=== PATIENT | male | born 1980 | race Caucasian/White ===

== ENCOUNTER 2019-01-20 17:17 | Inpatient (IN) | payer OTHER ==
[2019-01-20 21:17] VITALS: BMI 19.1
--- NOTE | 2019-01-20 22:17 | HP ---
COWS - Scale Resting Pulse: 0= [place] 80 or Below Sweatin= Chills/Flushing Restless Observation: 1= Difficult to Sit Still Pupil Size: 1= Pupils >than Normal Bone or Joint Aches: 1= Mild Discomfort Runny Nose/ Eye Tearin= Runny Nose/Eyes GI Upset > 30mins: 0= None Tremor Observation: 2= Slight Tremor Visible Yawning Observation: 2= >3x During Session Anxiety or Irritability: 2=Irritable/Anxious Goose Flesh Skin: 3=Piloerection COWS Score: 15 CIWA Score - Admission Criteria [facility]ASAS Guidelines: Admission for Medically Managed Detox: Requires at least one of the followin. CIWA greater than 12 2. Seizures within the past 24 hours 3. Delirium tremens within the past 24 hours 4. Hallucinations within the past 24 hours 5. Acute intervention needed for co occurring medical disorder 6. Acute intervention needed for co occurring psychiatric disorder 7. Severe withdrawal that cannot be handled at a lower level of care (continued vomiting, continued diarrhea, abnormal vital signs) requiring intravenous medication and/or fluids 8. Admission ROS [facility] Chief Complaint: C/O WITHDRAWAL SX'S Allergies/Adverse Reactions: Allergies Allergy/AdvReac Type Severity Reaction Status Date / Time No Known Allergies Allergy Verified 01/20/19 19:52 History of Present Illness: 38 Y.O. MALE WITH OPIOID DEPENDENCE HERE FOR DETOX. CLIENT WAS REFERRED BY [facility] AFTER HE WAS INFORMED THEY DID NOT TAKE HIS INSURANCE. CLIENT REPORTS DAILY USE OF HEROIN SINCE THE AGE OF 25 WITH PERIOD OF CLEAN TIME. LAST USE EARLY THIS MORNING. HERE NOW WITH C/O WITHDRAWAL SX'S. + COWS, IVDU. + HX OF DRUG OVERDOSE. DOESN'T RECALL LAST EPISODE. REPORTS MOST RECENT CLEAN TIME 1 YEAR RELAPSING 2 MONTHS.HOMELESS, UNEMPLOYED, DENIES LEGALS Exam Limitations: No Limitations - Ebola screening Have you traveled outside of the country in the last 21 days: No (N) Have you had contact with anyone from an Ebola affected area: No Do you have a fever: No - Review of Systems Constitutional: Chills, Loss of Appetite, Malaise, Night Sweats, Changes in sleep EENT: reports: Tearing, Nose Congestion (WITH RUNNY NOSE) Respiratory: reports: No Symptoms reported Cardiac: reports: No Symptoms Reported GI: reports: Diarrhea, Abdominal cramping : reports: No Symptoms Reported Musculoskeletal: reports: Back Pain Integumentary: reports: Other (PILORECTION) Neuro: reports: No Symptoms reported Endocrine: reports: No Symptoms Reported Hematology: reports: No Symptoms Reported Psychiatric: reports: Orientated x3, Agitated (IRRITABLE), Anxious, Depressed ( DENIES SI/HI) Other Systems: Reviewed and Negative Patient History - Patient Medical History Hx Anemia: No Hx Asthma: No Hx Chronic Obstructive Pulmonary Disease (COPD): No Hx Cancer: No Hx Cardiac Disorders: No Hx Congestive Heart Failure: No Hx Hypertension: No Hx Hypercholesterolemia: No Hx Pacemaker: No HX Cerebrovascular Accident: No Hx Seizures: No Hx Dementia: No Hx Diabetes: No Hx Gastrointestinal Disorders: No Hx Liver Disease: No Hx Genitourinary Disorders: No Hx Sexually Transmitted Disorders: No Hx Renal Disease (ESRD): No Hx Thyroid Disease: No Hx Human Immunodeficiency Virus (HIV): No Hx Hepatitis C: No Hx Depression: No Hx Suicide Attempt: No Hx Bipolar Disorder: No Hx Schizophrenia: No Other Medical History: DENIES - Patient Surgical History Past Surgical History: No - PPD History Previous Implant?: Yes Documented Results: Negative w/o proof Implanted On Prior [facility] Admission?: No PPD to be Administered?: Yes - Smoking Cessation Smoking history: Current every day smoker Have you smoked in the past 12 months: Yes Cigars Per Day: 0 Hx Chewing Tobacco Use: No Initiated information on smoking cessation: Yes 'Breaking Loose' booklet given: 01/20/19 - Substance & Tx. History Hx Alcohol Use: Yes Hx Substance Use: Yes Substance Use Type: Heroin Hx Substance Use Treatment: Yes ([facility]) - Substances abused Heroin Substance route: Injection Frequency: Daily Amount used: 2 BUNDLES Age of first use: 25 Date of last use: 01/20/19 Admission Physical Exam BHS - Vital Signs Vital Signs: Vital Signs - 24 hr 01/20/19 21:14 Temperature 98.1 F Pulse Rate 56 L Respiratory 18 Rate Blood Pressure 113/69 - Physical General Appearance: Yes: Moderate Distress, Tremorous, Irritable, Anxious, Other (yawning) HEENTM: Yes: EOMI, Normocephalic, Normal Voice, NOAH, Pharynx Normal Respiratory: Yes: Chest Non-Tender, Lungs Clear, Normal Breath Sounds, No Respiratory Distress, No Accessory Muscle Use Neck: Yes: No masses,lesions,Nodules, Supple, Trachea in good position Breast: Yes: Breast Exam Deferred Cardiology: Yes: Regular Rhythm, Regular Rate, S1, S2 Abdominal: Yes: Non Tender, Soft, Increased Bowel Sounds Genitourinary: Yes: Other (no c/o) Back: Yes: Normal Inspection Musculoskeletal: Yes: full range of Motion, Gait Steady Extremities: Yes: Normal Capillary Refill, Normal Range of Motion, Non-Tender, Tremors Neurological: Yes: Fully Oriented, Alert, Motor Strength 5/5, Depressed Affect Integumentary: Yes: Cold, Other (pilorection) Lymphatic: Yes: Within Normal Limits - Diagnostic (1) Opioid dependence with withdrawal Status: Acute (2) Cocaine dependence, uncomplicated Status: Acute (3) IVDU (intravenous drug user) Status: Acute (4) Homeless Status: Suspected (5) Substance induced mood disorder Status: Suspected Cleared for Admission S - Detox or Rehab [facility] Level of Care: Medically Managed Detox Regimen/Protocol: Methadone Claeared for Rehab Admission: No Breathalyzer - Breathalyzer Breathalyzer: 0 Urine Drug Screen - Test Device Lot number: [id number] Expiration date: 09/20/20 - Control Is test valid?: Yes - Results Drug screen NEGATIVE: Yes Urine drug screen results: SARAY-Cocaine, FEN-Fentanyl, MOP-Opiates, OXY-Oxycodone Inpatient Rehab Admission - Rehab Decision to Admit Inpatient rehab admission?: No
[2019-01-20] MEDS ORDERED: MAG HYDROX/AL HYDROX/SIMETH 30 ML UNIT-DOSE CUP PO PRN (22:20)
[2019-01-20] MEDS ORDERED: P-EPHED 60MG/TRIPROLIDI 2.5MG TABLET PO PRN (22:20)
[2019-01-20] MEDS ORDERED: MAGNESIUM HYDROX 2400MG/30ML ORAL SUSPENSION 30 ML CUP PO PRN (22:20)
[2019-01-20] MEDS ORDERED: cloNIDine HCL 0.1 MG TABLET PO PRN (22:20)
[2019-01-20] MEDS ORDERED: guaiFENesin 200 MG/10 ML 10 ML UNIT-DOSE CUPS PO PRN (22:20)
[2019-01-20] MEDS ORDERED: NICOTINE POLACRILEX 4 MG GUM BUC PRN (22:20)
[2019-01-20] MEDS ORDERED: METHADONE HCL 10 MG TABLET (FOR DETOX USE ONLY) PO ONE (22:20)
[2019-01-20] MEDS ORDERED: MAGNESIUM CITRATE 300 ML BOTTLE PO PRN (22:20)
[2019-01-20] MEDS ORDERED: MENTHOL/PHENOL 1 EACH UD MM PRN (22:20)
[2019-01-20] MEDS ORDERED: NALOXONE HCL 0.4 MG/ML VIAL IM PRN (22:20)
[2019-01-20] MEDS ORDERED: ACETAMINOPHEN 325 MG TABLET (FP) PO PRN ×2 (22:20)
[2019-01-20] MEDS ORDERED: ONDANSETRON *ODT* 4 MG TABLET SL PRN (22:20)
[2019-01-20] MEDS ORDERED: IBUPROFEN 400 MG TABLET (FP) PO PRN (22:20)
[2019-01-20] MEDS ORDERED: BISMUTH SUBSALICYLATE 524 MG/30 ML UD PO PRN (22:20)
[2019-01-20] MEDS ORDERED: hydrOXYzine PAMOATE 25 MG CAPSULE (FP) PO PRN (22:20)
[2019-01-20] MEDS: MELATONIN 5 MG TABLETS PO PRN (23:44)
[2019-01-20] MEDS: METHOCARBAMOL 500 MG TABLET PO PRN (23:44)
[2019-01-21] MEDS ORDERED: METHADONE HCL 5 MG TABLET (FOR DETOX USE ONLY) ONE (09:03)
[2019-01-21] MEDS ORDERED: METHADONE HCL 10 MG TABLET (FOR DETOX USE ONLY) ONE (09:03)
[2019-01-21] MEDS ORDERED: METHADONE (DETOX) 20 MG, METHADONE (DETOX) 5 MG PO ONE (10:00)
--- NOTE | 2019-01-21 10:14 | EKG ---
Test Reason : Blood Pressure : / mmHG Vent. Rate : 051 BPM Atrial Rate : 051 BPM P-R Int : 150 ms QRS Dur : 086 ms QT Int : 432 ms P-R-T Axes : 061 078 061 degrees QTc Int : 398 ms SINUS BRADYCARDIA ANTEROSEPTAL INFARCT , AGE UNDETERMINED ABNORMAL ECG NO PREVIOUS ECGS AVAILABLE Confirmed by Michael Yeboah MD ([id number]) on 01/21/2019 10:14:05 AM Referred By: Confirmed By:Michael Yeboah MD
[2019-01-21] MEDS: NICOTINE 21 MG/24 HOURS TOPICAL PATCH TD SCH (10:23)
[2019-01-21] MEDS: PRENATAL VITAMINS W/ FOLIC ACID TABLET (FP) PO SCH (10:23)
--- NOTE | 2019-01-21 10:38 | CONSULT ---
[facility] Psychiatric Consult - Data Date of interview: 01/21/19 Admission source: [facility] Identifying data: Patient is a 38 year old single male, without children, unemployed, homeless, and is not receiving any financial assistance. This is patient's first admissin to detox at [facility]. Patient admitted to for opiate dependence. Substance Abuse History: - Substances abused. Heroin. Substance route: Injection. Frequency: Daily. Amount used: 2 BUNDLES. Age of first use: 25. Date of last use: 01/20/19 Medical History: denies. Psychiatric History: Mr. Casper first and only psychiatric contact was 2 years ago after he seeked psychiatric help due to having difficulties with his girlfriend. He was provided psychotherapy but then discontinued treatment after one month. At present patient reports feeling fine. He denies feeling depressed. Physical/Sexual Abuse/Trauma History: denies. Mental Status Exam - Mental Status Exam Alert and Oriented to: Time, Place, Person Cognitive Function: Good Patient Appearance: Well Groomed Mood: Euthymic Affect: Mood Congruent Patient Behavior: Cooperative Speech Pattern: Appropriate Voice Loudness: Normal Thought Process: Goal Oriented Thought Disorder: Not Present Hallucinations: Denies Suicidal Ideation: Denies Homicidal Ideation: Denies Insight/Judgement: Poor Sleep: Poorly Appetite: Fair Muscle strength/Tone: Normal Gait/Station: Normal Psychiatric Findings - Problem List ([place] 1, 2,3) (1) Cocaine dependence, uncomplicated Current Visit: Yes Status: Acute (2) Opioid dependence with withdrawal Current Visit: Yes Status: Acute (3) Substance induced mood disorder Current Visit: No Status: Suspected - Initial Treatment Plan Initial Treatment Plan: Psychoeducation provided. Detoxification in progress. Observation.
[2019-01-21 12:11] LABS: HEMATOCRIT 37.2 % (35.4-49); HEMOGLOBIN 12.4 GM/dL (11.7-16.9); MCH 31.1 pg (25.7-33.7); MCHC 33.3 g/dl (32.0-35.9); MEAN CELL VOLUME 93.2 fl (80-96); MEAN PLT VOLUME 7.7 fl (7.5-11.1); PLATELET COUNT 327 K/MM3 (134-434); RDW 12.4 % (11.9-15.9); WHITE BLOOD COUNT 6.1 K/mm3 (4.0-10.0)
[2019-01-21 12:59] LABS: ALBUMIN 3.3 g/dl (3.4-5.0); BILIRUBIN,TOTAL 0.8 mg/dL (0.2-1); BLOOD UREA NITROGEN 11.9 mg/dL (7-18); CALCIUM 8.7 mg/dL (8.5-10.1); CREATININE 0.8 mg/dL (0.55-1.3); POTASSIUM 4.5 mmol/L (3.5-5.1); TOT PROT 6.2 g/dl (6.4-8.2)
--- NOTE | 2019-01-21 13:44 | PN ---
BHS COWS - Scale Resting Pulse: 0= [place] 80 or Below Sweatin= No chills or Flushing Restless Observation: 1= Difficult to Sit Still Pupil Size: 1= Pupils >than Normal Bone or Joint Aches: 2= Severe Diffuse Aches Runny Nose/ Eye Tearin= Nasal Congestion GI Upset > 30mins: 1= Stomach Cramp Tremor Observation of Outstretched Hands: 1= Tremor [place], Not Seen Yawning Observation: 1= 1-2x During Session Anxiety or Irritability: 2=Irritable/Anxious Goose Flesh Skin: 0=Smooth Skin COWS Score: 10 S Progress Note (SOAP) Subjective: alert,irritable,anxious,interrupted sleep,pain in the body and back Objective: 01/21/19 13:42 Vital Signs Temperature 98.4 F 01/21/19 13:08 Pulse Rate 50 L 01/21/19 13:08 Respiratory Rate 16 01/21/19 13:08 Blood Pressure 91/58 L 01/21/19 13:08 O2 Sat by Pulse Oximetry (%) Laboratory Last Values WBC 6.1 K/mm3 (4.0-10.0) 01/21/19 08:45 RBC 4.00 M/mm3 (4.00-5.60) 01/21/19 08:45 Hgb 12.4 GM/dL (11.7-16.9) 01/21/19 08:45 Hct 37.2 % (35.4-49) 01/21/19 08:45 MCV 93.2 fl (80-96) 01/21/19 08:45 MCH 31.1 pg (25.7-33.7) 01/21/19 08:45 MCHC 33.3 g/dl (32.0-35.9) 01/21/19 08:45 RDW 12.4 % (11.9-15.9) 01/21/19 08:45 Plt Count 327 K/MM3 (134-434) 01/21/19 08:45 MPV 7.7 fl (7.5-11.1) 01/21/19 08:45 Sodium 138 mmol/L (136-145) 01/21/19 08:45 Potassium 4.5 mmol/L (3.5-5.1) 01/21/19 08:45 Chloride 105 mmol/L (98-107) 01/21/19 08:45 Carbon Dioxide 27 mmol/L (21-32) 01/21/19 08:45 Anion Gap 7 MMOL/L (8-16) L 01/21/19 08:45 BUN 11.9 mg/dL (7-18) 01/21/19 08:45 Creatinine 0.8 mg/dL (0.55-1.3) 01/21/19 08:45 Est GFR (CKD-EPI)AfAm 131.34 01/21/19 08:45 Est GFR (CKD-EPI)NonAf 113.32 01/21/19 08:45 Random Glucose 79 mg/dL (74-106) 01/21/19 08:45 Calcium 8.7 mg/dL (8.5-10.1) 01/21/19 08:45 Total Bilirubin 0.8 mg/dL (0.2-1) 01/21/19 08:45 AST 19 U/L (15-37) 01/21/19 08:45 ALT 14 U/L (13-61) 01/21/19 08:45 Alkaline Phosphatase 89 U/L (45-117) 01/21/19 08:45 Total Protein 6.2 g/dl (6.4-8.2) L 01/21/19 08:45 Albumin 3.3 g/dl (3.4-5.0) L 01/21/19 08:45 01/21/19 13:43 rpr pending Assessment: 01/21/19 13:43 withdrawal symptom Plan: continue detox methadone regimen
[2019-01-21] MEDS: MELATONIN 5 MG TABLETS PO PRN (22:26)
[2019-01-21] MEDS: THIAMINE HCL 100 MG TABLET (FP) PO SCH (22:26)
[2019-01-22] MEDS ORDERED: METHADONE HCL 10 MG TABLET (FOR DETOX USE ONLY) PO ONE (10:00)
[2019-01-22] MEDS: PRENATAL VITAMINS W/ FOLIC ACID TABLET (FP) PO SCH (10:24)
[2019-01-22] MEDS: NICOTINE 21 MG/24 HOURS TOPICAL PATCH TD SCH (10:24)
[2019-01-22] MEDS: METHOCARBAMOL 500 MG TABLET PO PRN ×2 (10:25→22:06)
--- NOTE | 2019-01-22 14:06 | PN ---
BHS COWS - Scale Resting Pulse: 0= [place] 80 or Below Sweatin= No chills or Flushing Restless Observation: 1= Difficult to Sit Still Pupil Size: 1= Pupils >than Normal Bone or Joint Aches: 1= Mild Discomfort Runny Nose/ Eye Tearin= Runny Nose/Eyes GI Upset > 30mins: 1= Stomach Cramp Tremor Observation of Outstretched Hands: 1= Tremor [place], Not Seen Yawning Observation: 1= 1-2x During Session Anxiety or Irritability: 2=Irritable/Anxious Goose Flesh Skin: 0=Smooth Skin COWS Score: 10 S Progress Note (SOAP) Subjective: alert,irritable,anxious,pain in the body and back Objective: 01/22/19 14:05 Vital Signs Temperature 97.2 F L 01/22/19 13:17 Pulse Rate 75 01/22/19 13:17 Respiratory Rate 18 01/22/19 13:17 Blood Pressure 96/63 01/22/19 13:17 O2 Sat by Pulse Oximetry (%) 01/22/19 14:05 Laboratory Last Values WBC 6.1 K/mm3 (4.0-10.0) 01/21/19 08:45 RBC 4.00 M/mm3 (4.00-5.60) 01/21/19 08:45 Hgb 12.4 GM/dL (11.7-16.9) 01/21/19 08:45 Hct 37.2 % (35.4-49) 01/21/19 08:45 MCV 93.2 fl (80-96) 01/21/19 08:45 MCH 31.1 pg (25.7-33.7) 01/21/19 08:45 MCHC 33.3 g/dl (32.0-35.9) 01/21/19 08:45 RDW 12.4 % (11.9-15.9) 01/21/19 08:45 Plt Count 327 K/MM3 (134-434) 01/21/19 08:45 MPV 7.7 fl (7.5-11.1) 01/21/19 08:45 Sodium 138 mmol/L (136-145) 01/21/19 08:45 Potassium 4.5 mmol/L (3.5-5.1) 01/21/19 08:45 Chloride 105 mmol/L (98-107) 01/21/19 08:45 Carbon Dioxide 27 mmol/L (21-32) 01/21/19 08:45 Anion Gap 7 MMOL/L (8-16) L 01/21/19 08:45 BUN 11.9 mg/dL (7-18) 01/21/19 08:45 Creatinine 0.8 mg/dL (0.55-1.3) 01/21/19 08:45 Est GFR (CKD-EPI)AfAm 131.34 01/21/19 08:45 Est GFR (CKD-EPI)NonAf 113.32 01/21/19 08:45 Random Glucose 79 mg/dL (74-106) 01/21/19 08:45 Calcium 8.7 mg/dL (8.5-10.1) 01/21/19 08:45 Total Bilirubin 0.8 mg/dL (0.2-1) 01/21/19 08:45 AST 19 U/L (15-37) 01/21/19 08:45 ALT 14 U/L (13-61) 01/21/19 08:45 Alkaline Phosphatase 89 U/L (45-117) 01/21/19 08:45 Total Protein 6.2 g/dl (6.4-8.2) L 01/21/19 08:45 Albumin 3.3 g/dl (3.4-5.0) L 01/21/19 08:45 RPR Titer Nonreactive (NONREACTIVE) 01/21/19 08:45 Assessment: 01/22/19 14:06 withdrawal symptom Plan: continue detox,methadone regimen
[2019-01-22 16:53] LABS: PH,URINE 8.5 (5.0-8.0); URINE APPEARANCE CLEAR; URINE BILIRUBIN NEGATIVE (NEGATIVE); URINE COLOR YELLOW; URINE GLUCOSE (UA) NEGATIVE (NEGATIVE); URINE KETONE NEGATIVE (NEGATIVE); URINE LEUK ESTERASE NEGATIVE (NEGATIVE); URINE NITRITE NEGATIVE (NEGATIVE); URINE PROTEIN NEGATIVE (NEGATIVE); URINE UROBILINOGEN 0.2 mg/dL (0.2-1.0)
[2019-01-22] MEDS: THIAMINE HCL 100 MG TABLET (FP) PO SCH (22:05)
[2019-01-22] MEDS: MELATONIN 5 MG TABLETS PO PRN (22:06)
[2019-01-23] MEDS ORDERED: METHADONE HCL 5 MG TABLET (FOR DETOX USE ONLY) ONE (08:53)
[2019-01-23] MEDS ORDERED: METHADONE HCL 10 MG TABLET (FOR DETOX USE ONLY) ONE (08:53)
[2019-01-23] MEDS ORDERED: METHADONE (DETOX) 10 MG, METHADONE (DETOX) 5 MG PO ONE (10:00)
[2019-01-23] MEDS: PRENATAL VITAMINS W/ FOLIC ACID TABLET (FP) PO SCH (10:02)
[2019-01-23] MEDS: NICOTINE 21 MG/24 HOURS TOPICAL PATCH TD SCH (10:03)
--- NOTE | 2019-01-23 14:55 | PN ---
BHS COWS - Scale Resting Pulse: 0= [place] 80 or Below Sweatin= Chills/Flushing Restless Observation: 1= Difficult to Sit Still Pupil Size: 0= Normal to Room Light Bone or Joint Aches: 1= Mild Discomfort Runny Nose/ Eye Tearin= Runny Nose/Eyes GI Upset > 30mins: 0= None Tremor Observation of Outstretched Hands: 0= None Yawning Observation: 1= 1-2x During Session Anxiety or Irritability: 2=Irritable/Anxious Goose Flesh Skin: 0=Smooth Skin COWS Score: 8 BHS Progress Note (SOAP) Subjective: Anxious, Sweating, Fatigue, Nasal Congestion. Objective: PATIENT A & O X 3. IN NO ACUTE DISTRESS. 01/23/19 14:56 Vital Signs Temperature 96.9 F L 01/23/19 13:25 Pulse Rate 59 L 01/23/19 13:25 Respiratory Rate 18 01/23/19 13:25 Blood Pressure 89/57 L 01/23/19 13:25 O2 Sat by Pulse Oximetry (%) Laboratory Tests 01/21/19 01/21/19 01/21/19 08:45 08:45 08:45 WBC 6.1 RBC 4.00 Hgb 12.4 Hct 37.2 MCV 93.2 MCH 31.1 MCHC 33.3 RDW 12.4 Plt Count 327 MPV 7.7 Sodium 138 Potassium 4.5 Chloride 105 Carbon Dioxide 27 Anion Gap 7 L BUN 11.9 Creatinine 0.8 Est GFR (CKD-EPI)AfAm 131.34 Est GFR (CKD-EPI)NonAf 113.32 Random Glucose 79 Calcium 8.7 Total Bilirubin 0.8 AST 19 ALT 14 Alkaline Phosphatase 89 Total Protein 6.2 L Albumin 3.3 L Urine Color Urine Appearance Urine pH Ur Specific [place] Urine Protein Urine Glucose (UA) Urine Ketones Urine Blood Urine Nitrite Urine Bilirubin Urine Urobilinogen Ur Leukocyte Esterase RPR Titer Nonreactive 01/22/19 13:30 WBC RBC Hgb Hct MCV MCH MCHC RDW Plt Count MPV Sodium Potassium Chloride Carbon Dioxide Anion Gap BUN Creatinine Est GFR (CKD-EPI)AfAm Est GFR (CKD-EPI)NonAf Random Glucose Calcium Total Bilirubin AST ALT Alkaline Phosphatase Total Protein Albumin Urine Color Yellow Urine Appearance Clear Urine pH 8.5 H Ur Specific [place] 1.010 Urine Protein Negative Urine Glucose (UA) Negative Urine Ketones Negative Urine Blood Negative Urine Nitrite Negative Urine Bilirubin Negative Urine Urobilinogen 0.2 Ur Leukocyte Esterase Negative RPR Titer LABS NOTED. Assessment: 01/23/19 14:56 WITHDRAWAL SYMPTOMS. HYPOTENSION. 01/23/19 14:57 Plan: CONTINUE DETOX. INCREASE DAILY PO WATER INTAKE.
[2019-01-23] MEDS: THIAMINE HCL 100 MG TABLET (FP) PO SCH (22:05)
[2019-01-23] MEDS: METHOCARBAMOL 500 MG TABLET PO PRN (22:06)
[2019-01-23] MEDS: MELATONIN 5 MG TABLETS PO PRN (22:06)
[2019-01-24] MEDS ORDERED: METHADONE HCL 10 MG TABLET (FOR DETOX USE ONLY) PO ONE (10:00)
[2019-01-24] MEDS: PRENATAL VITAMINS W/ FOLIC ACID TABLET (FP) PO SCH (10:17)
[2019-01-24] MEDS: NICOTINE 21 MG/24 HOURS TOPICAL PATCH TD SCH (10:17)
[2019-01-24] MEDS: METHOCARBAMOL 500 MG TABLET PO PRN (22:03)
[2019-01-24] MEDS: MELATONIN 5 MG TABLETS PO PRN (22:03)
[2019-01-24] MEDS: THIAMINE HCL 100 MG TABLET (FP) PO SCH (22:03)
[2019-01-25] MEDS ORDERED: METHADONE HCL 5 MG TABLET (FOR DETOX USE ONLY) PO ONE (06:00)
[2019-01-25 09:09] VITALS: BP 96/68; PULSE 87; TEMP 95.8
--- NOTE | 2019-01-25 18:43 | DS ---
[facility] Detox Discharge Summary Admission Date: 01/20/19 Discharge Date: 01/25/19 - History Present History: Cocaine Dependence, Opioid Dependence Additional Comments: PATIENT GOING [facility] ([place], [place]) FOR AFTERCARE. PATIENT WAS DISCHARGED FORM DETOX UNIT IN STABLE MEDICAL CONDITION. Pertinent Past History: Intravenous Drug User, Hypotension. - Physical Exam Results Vital Signs: Vital Signs Temperature 95.8 F L 01/25/19 09:09 Pulse Rate 87 01/25/19 09:09 Respiratory Rate 18 01/25/19 09:09 Blood Pressure 96/68 01/25/19 09:09 O2 Sat by Pulse Oximetry (%) Pertinent Admission Physical Exam Findings: WITHDRAWAL SYMPTOMS. Laboratory Tests 01/21/19 01/21/19 01/21/19 08:45 08:45 08:45 WBC 6.1 RBC 4.00 Hgb 12.4 Hct 37.2 MCV 93.2 MCH 31.1 MCHC 33.3 RDW 12.4 Plt Count 327 MPV 7.7 Sodium 138 Potassium 4.5 Chloride 105 Carbon Dioxide 27 Anion Gap 7 L BUN 11.9 Creatinine 0.8 Est GFR (CKD-EPI)AfAm 131.34 Est GFR (CKD-EPI)NonAf 113.32 Random Glucose 79 Calcium 8.7 Total Bilirubin 0.8 AST 19 ALT 14 Alkaline Phosphatase 89 Total Protein 6.2 L Albumin 3.3 L Urine Color Urine Appearance Urine pH Ur Specific [place] Urine Protein Urine Glucose (UA) Urine Ketones Urine Blood Urine Nitrite Urine Bilirubin Urine Urobilinogen Ur Leukocyte Esterase RPR Titer Nonreactive 01/22/19 13:30 WBC RBC Hgb Hct MCV MCH MCHC RDW Plt Count MPV Sodium Potassium Chloride Carbon Dioxide Anion Gap BUN Creatinine Est GFR (CKD-EPI)AfAm Est GFR (CKD-EPI)NonAf Random Glucose Calcium Total Bilirubin AST ALT Alkaline Phosphatase Total Protein Albumin Urine Color Yellow Urine Appearance Clear Urine pH 8.5 H Ur Specific [place] 1.010 Urine Protein Negative Urine Glucose (UA) Negative Urine Ketones Negative Urine Blood Negative Urine Nitrite Negative Urine Bilirubin Negative Urine Urobilinogen 0.2 Ur Leukocyte Esterase Negative RPR Titer LABS NOTED. - Treatment Patient has Accepted a Rehab Referral to: PATIENT GOING TO [facility]. - Medication Discharge Medications: Ambulatory Orders NK [No Known Home Medication] 01/20/19 - Diagnosis (1) Cocaine dependence, uncomplicated Status: Acute (2) Hypotension Status: Acute Qualifiers: Hypotension type: unspecified hypotension type Qualified Code(s): I95.9 - Hypotension, unspecified (3) IVDU (intravenous drug user) Status: Acute (4) Opioid dependence with withdrawal Status: Acute (5) Homeless Status: Suspected (6) Substance induced mood disorder Status: Suspected - AMA Did Patient Leave Against Medical Advice: No BHS COWS - Scale Resting Pulse: 1= [place] 81-100 Sweatin= No chills or Flushing Restless Observation: 0= Sits Still Pupil Size: 0= Normal to Room Light Bone or Joint Aches: 0= None Runny Nose/ Eye Tearin= None GI Upset > 30mins: 0= None Tremor Observation of Outstretched Hands: 0= None Yawning Observation: 0= None Anxiety or Irritability: 2=Irritable/Anxious Goose Flesh Skin: 0=Smooth Skin COWS Score: 3
== END 2019-01-25 09:58 | disposition home or self-care (01) | DRG 773 ==
LOC: YASAS 17:17 → Y3N 23:02
PROVIDERS: ADMIT Surgery; ATTEND Surgery
PROC: HZ2ZZZZ Detoxification Services for Substance Abuse Treatment (ICD-10-PCS; principal; 2019-01-20)
DX: F11.23 Opioid dependence with withdrawal (principal); F14.20 Cocaine dependence, uncomplicated; F17.210 Nicotine dependence, cigarettes, uncomplicated; F19.24 Other psychoactive substance dependence with psychoactive substance-induced mood disorder; I95.9 Hypotension, unspecified; Z59.0 Homelessness
CPT/HCPCS: 36415; 80053; 81003; 85027; 86593; 93005; 93010

== ENCOUNTER 2019-02-21 19:50 | Inpatient (IN) | payer OTHER ==
[2019-02-21 20:42] VITALS: BMI 18.2
--- NOTE | 2019-02-21 22:14 | HP ---
COWS - Scale Resting Pulse: 0= [place] 80 or Below Sweatin= Chills/Flushing Restless Observation: 1= Difficult to Sit Still Pupil Size: 0= Normal to Room Light Bone or Joint Aches: 4=Acute Joint/Muscle Pain Runny Nose/ Eye Tearin= Nasal Congestion GI Upset > 30mins: 1= Stomach Cramp Tremor Observation: 0= None Yawning Observation: 1= 1-2x During Session Anxiety or Irritability: 2=Irritable/Anxious Goose Flesh Skin: 3=Piloerection COWS Score: 14 CIWA Score - Admission Criteria OASAS Guidelines: Admission for Medically Managed Detox: Requires at least one of the followin. CIWA greater than 12 2. Seizures within the past 24 hours 3. Delirium tremens within the past 24 hours 4. Hallucinations within the past 24 hours 5. Acute intervention needed for co occurring medical disorder 6. Acute intervention needed for co occurring psychiatric disorder 7. Severe withdrawal that cannot be handled at a lower level of care (continued vomiting, continued diarrhea, abnormal vital signs) requiring intravenous medication and/or fluids 8. Admitting History and Physical - Smoking History Smoking history: Current every day smoker Have you smoked in the past 12 months: Yes Aproximately how many cigarettes per day: 10 - Alcohol/Substance Use Hx Alcohol Use: Yes Admission ROS S - HPI Chief Complaint: C/O WITHDRAWAL SX'S Allergies/Adverse Reactions: Allergies Allergy/AdvReac Type Severity Reaction Status Date / Time No Known Allergies Allergy Verified 02/21/19 20:39 History of Present Illness: NAREN FOR HEROIN DETOX. CLIENT IS SELF REFERRED, KNOWN TO THE PROGRAM, LAST DC 01/25/2019. CLIENT REPORTS RELAPSING SOON AFTER DC. HE REPORTS DAILY USE OF HEROIN, + IVDU, + DRUG OVERDOSE, 7 TIMES LAST EPISODE 2 MONTHS AGO, DENIES BLACK, OUTS, SEIZURES, AVH, SI/HI. LAST USE THIS MORNING. NOW WITH WITHDRAWAL SX'S. LONGEST CLEAN TIME 1.5 YEARS. RELAPSING 12/2018. HOMELESS, UNEMPLOYED, DENIES LEGALS Exam Limitations: No Limitations - Ebola screening Have you traveled outside of the country in the last 21 days: No (N) Have you had contact with anyone from an Ebola affected area: No Do you have a fever: No - Review of Systems Constitutional: Chills, Loss of Appetite, Night Sweats, Changes in sleep EENT: reports: Nose Congestion, Dental Problems (MISSING TEETH) Respiratory: reports: No Symptoms reported Cardiac: reports: No Symptoms Reported GI: reports: Constipated (LAST BM 1 DAY AGO), Poor Appetite, Poor Fluid Intake : reports: No Symptoms Reported Musculoskeletal: reports: Back Pain, Joint Pain Integumentary: reports: No Symptoms Reported Neuro: reports: No Symptoms reported Endocrine: reports: No Symptoms Reported Hematology: reports: No Symptoms Reported Psychiatric: reports: Orientated x3, Anxious, Depressed Other Systems: Reviewed and Negative Patient History - Patient Medical History Hx Anemia: No Hx Asthma: No Hx Chronic Obstructive Pulmonary Disease (COPD): No Hx Cancer: No Hx Cardiac Disorders: No Hx Congestive Heart Failure: No Hx Hypertension: No Hx Hypercholesterolemia: No Hx Pacemaker: No HX Cerebrovascular Accident: No Hx Seizures: No Hx Dementia: No Hx Diabetes: No Hx Gastrointestinal Disorders: No Hx Liver Disease: No Hx Genitourinary Disorders: No Hx Sexually Transmitted Disorders: No Hx Renal Disease (ESRD): No Hx Thyroid Disease: No Hx Human Immunodeficiency Virus (HIV): No Hx Hepatitis C: No Hx Depression: No Hx Suicide Attempt: No Hx Bipolar Disorder: No Hx Schizophrenia: No - Patient Surgical History Past Surgical History: No Hx Neurologic Surgery: No Hx Cataract Extraction: No Hx Cardiac Surgery: No Hx Lung Surgery: No Hx Breast Surgery: No Hx Breast Biopsy: No Hx Abdominal Surgery: No Hx Appendectomy: No Hx Cholecystectomy: No Hx Genitourinary Surgery: No Hx Section: No Hx Orthopedic Surgery: No Anesthesia Reaction: No - PPD History Previous Implant?: Yes Documented Results: Negative w/proof Date: 01/22/19 Results: MM PPD to be Administered?: No - Smoking Cessation Smoking history: Current every day smoker Have you smoked in the past 12 months: Yes Aproximately how many cigarettes per day: 10 Cigars Per Day: 0 Hx Chewing Tobacco Use: No Initiated information on smoking cessation: Yes 'Breaking Loose' booklet given: 02/21/19 - Substance & Tx. History Hx Alcohol Use: Yes Hx Substance Use: Yes Substance Use Type: Heroin Hx Substance Use Treatment: Yes ([facility]) - Substances abused Heroin Substance route: Injection Frequency: Daily Amount used: 2 BUNDLES Age of first use: 25 Date of last use: 02/21/19 Cocaine Substance route: Injection Frequency: 3-6 times per week Amount used: 1 GM Age of first use: 18 Date of last use: 02/18/19 Admission Physical Exam [facility] - Vital Signs Vital Signs: Vital Signs - 24 hr 02/21/19 20:40 Temperature 97.9 F Pulse Rate 73 Respiratory 16 Rate Blood Pressure 106/62 - Physical General Appearance: Yes: Moderate Distress, Cachetic, Tremorous (FELT), Irritable, Anxious HEENTM: Yes: EOMI, Normocephalic, Normal Voice, NOAH, Pharynx Normal, Nasal Congestion Respiratory: Yes: Chest Non-Tender, Lungs Clear, Normal Breath Sounds, No Respiratory Distress, No Accessory Muscle Use Neck: Yes: No masses,lesions,Nodules, Supple, Trachea in good position Breast: Yes: Breast Exam Deferred Cardiology: Yes: Regular Rhythm, Regular Rate, S1, S2 Abdominal: Yes: Normal Bowel Sounds, Non Tender, Soft Genitourinary: Yes: Within Normal Limits Back: Yes: Normal Inspection Musculoskeletal: Yes: full range of Motion, Gait Steady Extremities: Yes: Normal Range of Motion, Non-Tender, Tremors (FELT) Neurological: Yes: Fully Oriented, Alert, Motor Strength 5/5, Depressed Affect ( DENIES SI/HI) Integumentary: Yes: Dry, Warm, Track [place] (NECK), Other (PILORECTION SUPERFICIAL ABRASION WITH SCABBING TO LEFT DICKSON FROM PREVIOUS FALL) Lymphatic: Yes: Within Normal Limits - Diagnostic (1) Cocaine dependence, uncomplicated Current Visit: Yes Status: Acute (2) IVDU (intravenous drug user) Current Visit: Yes Status: Acute (3) Opioid dependence with withdrawal Current Visit: Yes Status: Acute (4) Homeless Current Visit: Yes Status: Suspected (5) Substance induced mood disorder Current Visit: Yes Status: Suspected (6) Acute constipation Current Visit: Yes Status: Acute (7) Track larkin due to intravenous drug abuse Current Visit: Yes Status: Acute Cleared for Admission [facility] - Detox or Rehab [facility] Level of Care: Medically Managed Detox Regimen/Protocol: Methadone Claeared for Rehab Admission: No Breathalyzer - Breathalyzer Breathalyzer: 0 Urine Drug Screen - Test Device Lot number: [id number] Expiration date: 10/20/20 - Control Is test valid?: No - Results Drug screen NEGATIVE: No Urine drug screen results: SARAY-Cocaine, FEN-Fentanyl, MOP-Opiates, OXY-Oxycodone Inpatient Rehab Admission - Rehab Decision to Admit Inpatient rehab admission?: No
[2019-02-21] MEDS ORDERED: MENTHOL/PHENOL 1 EACH UD MM PRN (22:18)
[2019-02-21] MEDS ORDERED: METHOCARBAMOL 500 MG TABLET PO PRN (22:18)
[2019-02-21] MEDS ORDERED: hydrOXYzine PAMOATE 25 MG CAPSULE (FP) PO PRN (22:18)
[2019-02-21] MEDS ORDERED: ONDANSETRON *ODT* 4 MG TABLET SL PRN (22:18)
[2019-02-21] MEDS ORDERED: METHADONE HCL 10 MG TABLET (FOR DETOX USE ONLY) PO ONE (22:18)
[2019-02-21] MEDS ORDERED: P-EPHED 60MG/TRIPROLIDI 2.5MG TABLET PO PRN (22:18)
[2019-02-21] MEDS ORDERED: MAG HYDROX/AL HYDROX/SIMETH 30 ML UNIT-DOSE CUP PO PRN (22:18)
[2019-02-21] MEDS ORDERED: IBUPROFEN 400 MG TABLET (FP) PO PRN (22:18)
[2019-02-21] MEDS ORDERED: guaiFENesin 200 MG/10 ML 10 ML UNIT-DOSE CUPS PO PRN (22:18)
[2019-02-21] MEDS ORDERED: BISMUTH SUBSALICYLATE 524 MG/30 ML UD PO PRN (22:18)
[2019-02-21] MEDS ORDERED: MAGNESIUM CITRATE 300 ML BOTTLE PO PRN (22:18)
[2019-02-21] MEDS ORDERED: NALOXONE HCL 0.4 MG/ML VIAL IM PRN (22:18)
[2019-02-21] MEDS ORDERED: ACETAMINOPHEN 325 MG TABLET (FP) PO PRN ×2 (22:18)
[2019-02-21] MEDS ORDERED: cloNIDine HCL 0.1 MG TABLET PO PRN (22:18)
[2019-02-21] MEDS ORDERED: NICOTINE POLACRILEX 2 MG GUM BUC PRN (22:18)
[2019-02-21] MEDS ORDERED: DICYCLOMINE HCL 10 MG CAPSULE PO PRN (22:18)
[2019-02-21] MEDS ORDERED: MAGNESIUM HYDROX 2400MG/30ML ORAL SUSPENSION 30 ML CUP PO PRN (22:18)
[2019-02-22 09:48] LABS: HEMATOCRIT 37.6 % (35.4-49); HEMOGLOBIN 12.5 GM/dL (11.7-16.9); MCH 31.1 pg (25.7-33.7); MCHC 33.2 g/dl (32.0-35.9); MEAN CELL VOLUME 93.7 fl (80-96); MEAN PLT VOLUME 7.7 fl (7.5-11.1); PLATELET COUNT 310 K/MM3 (134-434); RBC 4.01 M/mm3 (4.00-5.60); RDW 13.2 % (11.9-15.9); WHITE BLOOD COUNT 6.6 K/mm3 (4.0-10.0)
[2019-02-22] MEDS ORDERED: METHADONE HCL 10 MG TABLET (FOR DETOX USE ONLY) PO ONE (10:00)
[2019-02-22 10:18] LABS: ALBUMIN 3.2 g/dl (3.4-5.0); BILIRUBIN,TOTAL 0.8 mg/dL (0.2-1); BLOOD UREA NITROGEN 13.2 mg/dL (7-18); CALCIUM 8.6 mg/dL (8.5-10.1); CREATININE 0.8 mg/dL (0.55-1.3); POTASSIUM 4.1 mmol/L (3.5-5.1); TOT PROT 6.3 g/dl (6.4-8.2)
[2019-02-22] MEDS: PRENATAL VITAMINS W/ FOLIC ACID TABLET (FP) PO SCH (10:54)
[2019-02-22] MEDS: NICOTINE 21 MG/24 HOURS TOPICAL PATCH TD SCH (10:56)
--- NOTE | 2019-02-22 11:31 | PN ---
BHS COWS - Scale Resting Pulse: 0= [place] 80 or Below Sweatin= Chills/Flushing Restless Observation: 1= Difficult to Sit Still Pupil Size: 0= Normal to Room Light Bone or Joint Aches: 2= Severe Diffuse Aches Runny Nose/ Eye Tearin= Runny Nose/Eyes GI Upset > 30mins: 1= Stomach Cramp Tremor Observation of Outstretched Hands: 2= Slight Tremor Visible Yawning Observation: 2= >3x During Session Anxiety or Irritability: 2=Irritable/Anxious Goose Flesh Skin: 0=Smooth Skin COWS Score: 13 BHS Progress Note (SOAP) Subjective: sweats shakes chills interrupted sleep anxiety body aches irritable Objective: 02/22/19 11:30 Vital Signs Temperature 96.4 F L 02/22/19 09:25 Pulse Rate 75 02/22/19 09:25 Respiratory Rate 18 02/22/19 09:25 Blood Pressure 109/59 L 02/22/19 09:25 O2 Sat by Pulse Oximetry (%) Laboratory Tests 02/22/19 02/22/19 07:45 07:45 WBC 6.6 RBC 4.01 Hgb 12.5 Hct 37.6 MCV 93.7 MCH 31.1 MCHC 33.2 RDW 13.2 Plt Count 310 MPV 7.7 Sodium 141 Potassium 4.1 Chloride 106 Carbon Dioxide 28 Anion Gap 6 L BUN 13.2 Creatinine 0.8 Est GFR (CKD-EPI)AfAm 131.34 Est GFR (CKD-EPI)NonAf 113.32 Random Glucose 92 Calcium 8.6 Total Bilirubin 0.8 AST 18 ALT 17 Alkaline Phosphatase 107 Total Protein 6.3 L Albumin 3.2 L labs noted aaox3 ambulating no acute distress Assessment: 02/22/19 11:31 withdrawals Plan: continue detox increase fluids valium 10mg x 3 days only
--- NOTE | 2019-02-22 14:14 | CONSULT ---
[facility] Psychiatric Consult - Data Date of interview: 02/22/19 Admission source: [facility] Identifying data: Readmission to [facility] for this 38 y/o male self- referred for detoxification (BEN issues : heroin, cocaine, nicotine). Interviewed at [address] [place] [address]. Patient is single, no dependents, homeless, unemployed and deprived of financial assistance. Substance Abuse History: Discussed with patient in this session. Details in accordance with contents of current [facility] reprt as follows : Smoking history: Current every day smoker. Have you smoked in the past 12 months: Yes. Aproximately how many cigarettes per day: 10. Cigars Per Day: 0. Hx Chewing Tobacco Use: No. Initiated information on smoking cessation: Yes. 'Breaking Loose' booklet given: 02/21/19. - Substance & Tx. History. Hx Alcohol Use: Yes. Hx Substance Use: Yes. Substance Use Type: Heroin. Hx Substance Use Treatment: Yes ([facility]). - Substances abused. Heroin. Substance route: Injection. Frequency: Daily. Amount used: 2 BUNDLES. Age of first use: 25. Date of last use: 02/21/19. Cocaine. Substance route: Injection. Frequency : 3-6 times per week. Amount used: 1 GM. Age of first use: 18. Date of last use: 02/18/19 Medical History: Patient endorses good general health. Psychiatric History: Patient denies history of psychiatric hopsitalizations, OPD care or suicide attempts. Physical/Sexual Abuse/Trauma History: Patient denies. Additional Comment: Urine drug screen results: SARAY-Cocaine, FEN-Fentanyl, MOP- Opiates, OXY-Oxycodone. Noted. Mental Status Exam - Mental Status Exam Alert and Oriented to: Time, Place, Person Cognitive Function: Good Patient Appearance: Unkempt, Disheveled (thin habitus) Mood: Withdrawn Affect: Mood Congruent, Constricted Patient Behavior: Fatigued, Appropriate, Cooperative Speech Pattern: Clear, Appropriate Voice Loudness: Normal Thought Process: Goal Oriented Thought Disorder: Not Present Hallucinations: Denies Suicidal Ideation: Denies Homicidal Ideation: Denies Insight/Judgement: Poor Sleep: Well Appetite: Poor, Weight loss Gait/Station: Other (not observed; supine for duration of interview) Psychiatric Findings - Problem List ([place] 1, 2,3) (1) Opioid dependence with withdrawal Current Visit: Yes Status: Acute (2) Cocaine dependence, uncomplicated Current Visit: Yes Status: Chronic (3) Nicotine dependence Current Visit: Yes Status: Chronic (4) Substance induced mood disorder Current Visit: Yes Status: Chronic - Initial Treatment Plan Initial Treatment Plan: Psychoeducation. Sleep hygiene. Detoxification. NA meetings. MAT services offered : patient declines. Rehabilitation recommended : patient responded with ambivalence. " I am thinking about it." Observation.
[2019-02-22] MEDS: DOCUSATE SODIUM 100 MG CAPSULE (FP) PO SCH (22:38)
[2019-02-22] MEDS: diazePAM 5 MG TABLET PO PRN (22:38)
[2019-02-22] MEDS: THIAMINE HCL 100 MG TABLET (FP) PO SCH (22:39)
[2019-02-22] MEDS: MELATONIN 5 MG TABLETS PO PRN (22:39)
[2019-02-23] MEDS ORDERED: METHADONE HCL 10 MG TABLET (FOR DETOX USE ONLY) PO ONE (10:00)
[2019-02-23] MEDS: PRENATAL VITAMINS W/ FOLIC ACID TABLET (FP) PO SCH (10:51)
[2019-02-23] MEDS: NICOTINE 21 MG/24 HOURS TOPICAL PATCH TD SCH (10:51)
[2019-02-23] MEDS: diazePAM 5 MG TABLET PO PRN ×2 (10:57→22:30)
--- NOTE | 2019-02-23 16:20 | PN ---
BHS COWS - Scale Resting Pulse: 0= [place] 80 or Below Sweatin= Chills/Flushing Restless Observation: 1= Difficult to Sit Still Pupil Size: 0= Normal to Room Light Bone or Joint Aches: 2= Severe Diffuse Aches Runny Nose/ Eye Tearin= None GI Upset > 30mins: 2= Nausea/Diarrhea Tremor Observation of Outstretched Hands: 2= Slight Tremor Visible Yawning Observation: 1= 1-2x During Session Anxiety or Irritability: 2=Irritable/Anxious Goose Flesh Skin: 0=Smooth Skin COWS Score: 11 BHS Progress Note (SOAP) Subjective: Sweating, chills, tremor, yawning, stomachache, interrupted sleep Objective: 02/23/19 16:20 Last Vital Signs Temp Pulse Resp BP Pulse Ox 97.3 F L 69 20 99/67 02/23/19 14:01 02/23/19 14:01 02/23/19 14:01 02/23/19 14:01 Laboratory Tests 02/22/19 02/22/19 07:45 07:45 WBC 6.6 RBC 4.01 Hgb 12.5 Hct 37.6 MCV 93.7 MCH 31.1 MCHC 33.2 RDW 13.2 Plt Count 310 MPV 7.7 Sodium 141 Potassium 4.1 Chloride 106 Carbon Dioxide 28 Anion Gap 6 L BUN 13.2 Creatinine 0.8 Est GFR (CKD-EPI)AfAm 131.34 Est GFR (CKD-EPI)NonAf 113.32 Random Glucose 92 Calcium 8.6 Total Bilirubin 0.8 AST 18 ALT 17 Alkaline Phosphatase 107 Total Protein 6.3 L Albumin 3.2 L Labs reviewed Assessment: 02/23/19 16:20 Withdrawal sxs Plan: Continue detox Encouraged PO water intake
[2019-02-23] MEDS: THIAMINE HCL 100 MG TABLET (FP) PO SCH (22:29)
[2019-02-23] MEDS: DOCUSATE SODIUM 100 MG CAPSULE (FP) PO SCH (22:29)
[2019-02-23] MEDS: MELATONIN 5 MG TABLETS PO PRN (22:31)
[2019-02-24] MEDS ORDERED: METHADONE HCL 5 MG TABLET (FOR DETOX USE ONLY) ONE (09:46)
[2019-02-24] MEDS ORDERED: METHADONE HCL 10 MG TABLET (FOR DETOX USE ONLY) ONE (09:46)
[2019-02-24] MEDS ORDERED: METHADONE (DETOX) 10 MG, METHADONE (DETOX) 5 MG PO ONE (10:00)
[2019-02-24] MEDS: PRENATAL VITAMINS W/ FOLIC ACID TABLET (FP) PO SCH (10:26)
[2019-02-24] MEDS: NICOTINE 21 MG/24 HOURS TOPICAL PATCH TD SCH (10:26)
[2019-02-24] MEDS: diazePAM 5 MG TABLET PO PRN ×2 (10:29→22:09)
--- NOTE | 2019-02-24 12:11 | PN ---
BHS COWS - Scale Resting Pulse: 0= [place] 80 or Below Sweatin= Chills/Flushing Restless Observation: 1= Difficult to Sit Still Pupil Size: 1= Pupils >than Normal Bone or Joint Aches: 1= Mild Discomfort Runny Nose/ Eye Tearin= Nasal Congestion GI Upset > 30mins: 1= Stomach Cramp Tremor Observation of Outstretched Hands: 1= Tremor [place], Not Seen Yawning Observation: 0= None Anxiety or Irritability: 2=Irritable/Anxious Goose Flesh Skin: 0=Smooth Skin COWS Score: 9 BHS Progress Note (SOAP) Subjective: alert,irritable,anxious,interrupted sleep,pain in the body Objective: 02/24/19 12:10 Vital Signs Temperature 96.8 F L 02/24/19 09:21 Pulse Rate 78 02/24/19 09:21 Respiratory Rate 18 02/24/19 09:21 Blood Pressure 99/54 L 02/24/19 09:21 O2 Sat by Pulse Oximetry (%) Assessment: 02/24/19 12:10 withdrawal symptom Plan: continue detox methadone regimen
[2019-02-24] MEDS: DOCUSATE SODIUM 100 MG CAPSULE (FP) PO SCH (22:08)
[2019-02-24] MEDS: THIAMINE HCL 100 MG TABLET (FP) PO SCH (22:08)
[2019-02-24] MEDS: MELATONIN 5 MG TABLETS PO PRN (22:08)
[2019-02-25] MEDS ORDERED: METHADONE HCL 10 MG TABLET (FOR DETOX USE ONLY) PO ONE (10:00)
[2019-02-25] MEDS: PRENATAL VITAMINS W/ FOLIC ACID TABLET (FP) PO SCH (10:51)
[2019-02-25] MEDS: NICOTINE 21 MG/24 HOURS TOPICAL PATCH TD SCH (10:51)
--- NOTE | 2019-02-25 13:02 | PN ---
BHS COWS - Scale Resting Pulse: 0= [place] 80 or Below Sweatin= No chills or Flushing Restless Observation: 0= Sits Still Pupil Size: 0= Normal to Room Light Bone or Joint Aches: 1= Mild Discomfort Runny Nose/ Eye Tearin= Nasal Congestion GI Upset > 30mins: 1= Stomach Cramp Tremor Observation of Outstretched Hands: 1= Tremor [place], Not Seen Yawning Observation: 0= None Anxiety or Irritability: 2=Irritable/Anxious Goose Flesh Skin: 0=Smooth Skin COWS Score: 6 BHS Progress Note (SOAP) Subjective: alert,irritable,interrupted sleep Objective: 02/25/19 13:01 Vital Signs Temperature 98.0 F 02/25/19 09:24 Pulse Rate 64 02/25/19 09:24 Respiratory Rate 16 02/25/19 09:24 Blood Pressure 102/63 02/25/19 09:24 O2 Sat by Pulse Oximetry (%) Assessment: 02/25/19 13:01 withdrawal symptom Plan: continue detox mehadone regimen,discharge in am
[2019-02-25 15:07] LABS: URINE APPEARANCE CLEAR; URINE BILIRUBIN NEGATIVE (NEGATIVE); URINE COLOR YELLOW; URINE GLUCOSE (UA) NEGATIVE (NEGATIVE); URINE KETONE NEGATIVE (NEGATIVE); URINE LEUK ESTERASE NEGATIVE (NEGATIVE); URINE NITRITE NEGATIVE (NEGATIVE); URINE PROTEIN NEGATIVE (NEGATIVE); URINE UROBILINOGEN 0.2 mg/dL (0.2-1.0)
[2019-02-25] MEDS: MELATONIN 5 MG TABLETS PO PRN (22:23)
[2019-02-25] MEDS: THIAMINE HCL 100 MG TABLET (FP) PO SCH (22:23)
[2019-02-25] MEDS: DOCUSATE SODIUM 100 MG CAPSULE (FP) PO SCH (22:41)
[2019-02-26] MEDS ORDERED: METHADONE HCL 5 MG TABLET (FOR DETOX USE ONLY) PO ONE (06:00)
--- NOTE | 2019-02-26 08:46 | PN ---
BHS COWS - Scale Resting Pulse: 0= [place] 80 or Below Sweatin= No chills or Flushing Restless Observation: 0= Sits Still Pupil Size: 0= Normal to Room Light Bone or Joint Aches: 1= Mild Discomfort Runny Nose/ Eye Tearin= None GI Upset > 30mins: 0= None Tremor Observation of Outstretched Hands: 0= None Yawning Observation: 0= None Anxiety or Irritability: 1=Feels Anxious/Irritable Goose Flesh Skin: 0=Smooth Skin COWS Score: 2 BHS Progress Note (SOAP) Subjective: alert,no complaint Objective: 02/26/19 08:45 Vital Signs Temperature 96 F L 02/26/19 07:39 Pulse Rate 63 02/26/19 07:39 Respiratory Rate 16 02/26/19 07:39 Blood Pressure 92/51 L 02/26/19 07:39 O2 Sat by Pulse Oximetry (%) Assessment: 02/26/19 08:45 detox completed,no withdrawal symptom Plan: discharge today,follow up [facility]
--- NOTE | 2019-02-26 08:48 | DS ---
[facility] Detox Discharge Summary Admission Date: 02/21/19 Discharge Date: 02/26/19 - History Present History: Cocaine Dependence, Opioid Dependence Additional Comments: follow up [facility] Pertinent Past History: IVDU - Physical Exam Results Vital Signs: Vital Signs Temperature 96 F L 02/26/19 07:39 Pulse Rate 63 02/26/19 07:39 Respiratory Rate 16 02/26/19 07:39 Blood Pressure 92/51 L 02/26/19 07:39 O2 Sat by Pulse Oximetry (%) Pertinent Admission Physical Exam Findings: withdrawal signs and symptom Vital Signs Temperature 96 F L 02/26/19 07:39 Pulse Rate 63 02/26/19 07:39 Respiratory Rate 16 02/26/19 07:39 Blood Pressure 92/51 L 02/26/19 07:39 O2 Sat by Pulse Oximetry (%) Laboratory Last Values WBC 6.6 K/mm3 (4.0-10.0) 02/22/19 07:45 RBC 4.01 M/mm3 (4.00-5.60) 02/22/19 07:45 Hgb 12.5 GM/dL (11.7-16.9) 02/22/19 07:45 Hct 37.6 % (35.4-49) 02/22/19 07:45 MCV 93.7 fl (80-96) 02/22/19 07:45 MCH 31.1 pg (25.7-33.7) 02/22/19 07:45 MCHC 33.2 g/dl (32.0-35.9) 02/22/19 07:45 RDW 13.2 % (11.9-15.9) 02/22/19 07:45 Plt Count 310 K/MM3 (134-434) 02/22/19 07:45 MPV 7.7 fl (7.5-11.1) 02/22/19 07:45 Sodium 141 mmol/L (136-145) 02/22/19 07:45 Potassium 4.1 mmol/L (3.5-5.1) 02/22/19 07:45 Chloride 106 mmol/L (98-107) 02/22/19 07:45 Carbon Dioxide 28 mmol/L (21-32) 02/22/19 07:45 Anion Gap 6 MMOL/L (8-16) L 02/22/19 07:45 BUN 13.2 mg/dL (7-18) 02/22/19 07:45 Creatinine 0.8 mg/dL (0.55-1.3) 02/22/19 07:45 Est GFR (CKD-EPI)AfAm 131.34 02/22/19 07:45 Est GFR (CKD-EPI)NonAf 113.32 02/22/19 07:45 Random Glucose 92 mg/dL (74-106) 02/22/19 07:45 Calcium 8.6 mg/dL (8.5-10.1) 02/22/19 07:45 Total Bilirubin 0.8 mg/dL (0.2-1) 02/22/19 07:45 AST 18 U/L (15-37) 02/22/19 07:45 ALT 17 U/L (13-61) 02/22/19 07:45 Alkaline Phosphatase 107 U/L (45-117) 02/22/19 07:45 Total Protein 6.3 g/dl (6.4-8.2) L 02/22/19 07:45 Albumin 3.2 g/dl (3.4-5.0) L 02/22/19 07:45 Urine Color Yellow 02/25/19 11:45 Urine Appearance Clear 02/25/19 11:45 Urine pH 7.0 (5.0-8.0) 02/25/19 11:45 Ur Specific [place] 1.013 (1.010-1.035) 02/25/19 11:45 Urine Protein Negative (NEGATIVE) 02/25/19 11:45 Urine Glucose (UA) Negative (NEGATIVE) 02/25/19 11:45 Urine Ketones Negative (NEGATIVE) 02/25/19 11:45 Urine Blood Negative (NEGATIVE) 02/25/19 11:45 Urine Nitrite Negative (NEGATIVE) 02/25/19 11:45 Urine Bilirubin Negative (NEGATIVE) 02/25/19 11:45 Urine Urobilinogen 0.2 mg/dL (0.2-1.0) 02/25/19 11:45 Ur Leukocyte Esterase Negative (NEGATIVE) 02/25/19 11:45 - Treatment Hospital Course: Detox Protocol Followed, Detoxed Safely, Responded well, Discharged Condition Good, Rehab Referral Accepted Patient has Accepted a Re[facility] Referral to: [facility] - Medication Discharge Medications: Ambulatory Orders NK [No Known Home Medication] 01/20/19 - Diagnosis (1) IVDU (intravenous drug user) Current Visit: Yes Status: Acute (2) Opioid dependence with withdrawal Current Visit: Yes Status: Acute (3) Cocaine dependence, uncomplicated Current Visit: Yes Status: Chronic - AMA Did Patient Leave Against Medical Advice: No
[2019-02-26 09:24] VITALS: BP 103/51; PULSE 74; TEMP 98.6
== END 2019-02-26 10:00 | disposition other institution (70) | DRG 773 ==
LOC: YASAS 19:50 → Y6N 22:38
PROVIDERS: ADMIT Allergy & Immunology; ATTEND Allergy & Immunology
PROC: HZ2ZZZZ Detoxification Services for Substance Abuse Treatment (ICD-10-PCS; principal; 2019-02-21)
DX: F11.23 Opioid dependence with withdrawal (principal); F14.20 Cocaine dependence, uncomplicated; F17.210 Nicotine dependence, cigarettes, uncomplicated; K59.00 Constipation, unspecified; Z59.0 Homelessness
CPT/HCPCS: 36415; 80053; 81003; 85027